=== PATIENT | male | born 1945 | race American Indian/Alaskan Native ===

== ENCOUNTER 2018-01-10 12:34 | Outpatient (CLI) | payer MEDICARE ==
--- NOTE | 2018-01-10 15:14 | XRay Report ---
XRAY LUMBAR SPINE WITH OBLIQUES 5 VIEWS: 01/10/18 12:34:00 CLINICAL: Sciatic radiculitis FINDINGS: Normal vertebral body alignment. Mild anterior wedging of the L1 vertebral body with no fracture lines. The disc spaces are preserved at all levels. Large anterior and lateral osteophytes at all levels. Oblique views demonstrate pronounced neural foraminal stenosis on the right at L4-5 and moderate neural foraminal stenosis on the left at L4-5. No suspicious bone lesions. Facet joint sclerosis on the left at L4-5. The SI joints are normal. IMPRESSION: Extensive spondylosis and bilateral neural foraminal stenosis at L4-5, greater on the right than the left. Probably chronic mild L1 anterior wedge compression fracture.
== END 2018-01-10 12:35 | disposition home or self-care (01) ==
LOC: SPVIMAG 12:34
PROVIDERS: ATTEND Internal Medicine
DX: M51.17 Intervertebral disc disorders with radiculopathy, lumbosacral region (principal); M47.896 Other spondylosis, lumbar region; M48.061 Spinal stenosis, lumbar region without neurogenic claudication
CPT/HCPCS: 72110